=== PATIENT | female | born 1965 | race Caucasian/White ===

== ENCOUNTER 2017-01-28 08:00 | Emergency (ER) | payer SELFPAY ==
--- NOTE | ~2017-01-28 | CR72 ---
[facility]. [facility] A Service of [facility] & [facility] RADIOLOGY TEXT RESULTS PATIENT: NASREEN MARRERO LOCATION: SED : 61 UNIT #: [id number] AGE: [address]: Kenzie Alexis MD SEX: F ORDER DR: [id number] [address] [address] [id number] E MR#: [id number] Acc #: [id number] NAME: NASREEN MARRERO : 1965 SEX: F STUDY DATE/TIME: 01/28/2017 8:57 UNIT: SED ROOM: STUDY DESCRIPTION: CR Chest Single View Portable Attending Physician: Kenzie Alexis M.D. Ordering Physician: Kenzie Alexis M.D. Primary Care Physician: Primary Care Physician No MEDICAL IMAGING REPORT This report is preliminary unless electronic signature is present. EXAM Portable chest INDICATIONS Dizziness today, near-syncope, no comparisons. FINDINGS There is low-volume inspiration with bibasilar atelectasis. Heart size normal. Visualized osseous structures are unremarkable. IMPRESSION Low-volume inspiration with bibasilar atelectasis. Dictated by... Pedro Lockett M.D. THIS IS AN ELECTRONICALLY VERIFIED REPORT Pedro Lockett M.D. at 01/29/2017 7:32 AM OUMAR/joyce TD: 01/28/2017 10:46 JOB #: [id number] MEDICAL IMAGING REPORT Page 1 of 1
--- NOTE | ~2017-01-28 | EKG ---
PATIENT: NASREEN MARRERO UNIT #: [id number] Ventricular Rate: 62 BPM Atrial Rate: 62 BPM P-R Interval: 184 ms QRS Duration: 88 ms Q-T Interval: 446 ms QTC Calculation(Bezet): 452 ms P [place]: 52 degrees Calculated R [place]: 24 degrees Calculated T [place]: 65 degrees Diagnosis Line: Normal sinus rhythm Diagnosis Line: Cannot rule out Anterior infarct , age Diagnosis Line: undetermined Diagnosis Line: Abnormal ECG Diagnosis Line: No previous ECGs available Diagnosis Line: Confirmed by FOZIA MELVIN MD ([id number]) on Diagnosis Line: 01/29/2017 8:37:09 AM INTERPRETING MD: OLEGARIO CASTAÑEDA
[~2017-01-28 08:00] MED LIST: ALPRAZOLAM PO; CIPRO PO; CLEOCIN HCL300 M1 PO; FLAGYL PO; MOBIC PO; PERCOCET PO; PHENERGAN25 M1 PO; PYRIDIUM PO; VICODIN 5/500 T1 TAB PO
[2017-01-28] MEDS ORDERED: NO MEDICATIONS (08:05)
[2017-01-28 09:16] LABS: BASOPHIL% 0.5 % (0-2.5); EOSINOPHIL# 0.1 X10e3 (0-0.7); EOSINOPHIL% 1.6 % (0.0-7.0); HEMATOCRIT 39.7 % (35.0-45.0); HEMOGLOBIN 13.5 gm/dL (12.0-16.0); LYMPHOCYTE# 0.9 X10e3 (1.0-3.5); LYMPHOCYTE% 22.3 % (17.0-45.0); MEAN CORPUSCULAR HEMOGLOBIN 30.8 PG (28-34); MEAN CORPUSCULAR HGB CONC 33.8 g/dL (30-36); MEAN PLATELET VOLUME 7.9 FL (6.5-11.5); MONOCYTE# 0.3 X10e3 (0-1.0); MONOCYTE% 6.5 % (3.0-12.0); NEUTROPHIL# 2.9 X10e3 (1.5-7.1); NEUTROPHIL% 69.1 % (40-75); PLATELET COUNT 208 X10e3 (140-420); RED BLOOD COUNT 4.37 X10e (3.90-5.30); RED CELL DISTRIBUTION WIDTH 13.1 % (11.0-15.5); WHITE BLOOD COUNT 4.2 X10e3 (4.0-10.5)
[2017-01-28 09:18] LABS: DIFF IND NO
[2017-01-28 09:20] LABS: POC - CKMB 2.5 ng/mL (0.0-7.9)
[2017-01-28 09:21] LABS: POC - TROPONIN <0.05 ng/mL (<=0.05)
[2017-01-28 09:35] LABS: ALBUMIN SERUM 3.9 g/dL (3.5-5.0); BILIRUBIN, DIRECT 0.1 mg/dL (0.0-0.2); BILIRUBIN,INDIRECT 0.6 mg/dL (0.0-0.9); BILIRUBIN,TOTAL 0.7 mg/dL (0.2-2.0); CREATININE SERUM 0.7 mg/dL (0.6-1.4); GLOM FILT RATE Estimated 98.9 mL/min (>60); MAGNESIUM 2.1 mg/dL (1.6-3.0); POTASSIUM 3.4 mmol/L (3.5-5.1); PROTEIN TOTAL SERUM 7.1 g/dL (6.0-8.3)
[2017-01-28 10:48] LABS: POC - CKMB 2.6 ng/mL (0.0-7.9); POC - TROPONIN <0.05 ng/mL (<=0.05)
[2017-01-28 10:49] LABS: URINE APPEARANCE HAZY; URINE BILIRUBIN NEG (NEG); URINE BLOOD 1+ (NEG); URINE COLOR YELLOW; URINE GLUCOSE NEG (NORM); URINE KETONE NEG (NEG); URINE LEUKOCYTE ESTERASE NEG (NEG); URINE NITRATE POS (NEG); URINE PROTEIN NEG (NEG); URINE SPECIFIC GRAVITY >=1.030 (1.003-1.035); URINE UROBILINOGEN 0.2 MG/DL (NORM)
[2017-01-28 10:56] LABS: MICRO INDICATED? YES; URINE SOURCE CLEAN CATCH
[2017-01-28 10:57] LABS: CULTURE INDICATED? YES; URINE BACTERIA 4+ (NEG); URINE SQUAMOUS EPITHELIAL CELL MANY /[HPF]
[2017-01-28 11:07] LABS: AMPHETAMINE POS (NEG); BARBITURATES NEG (NEG); BENZODIAZEPINES POS (NEG); COCAINE NEG (NEG); MARIJUANA NEG (NEG); OPIATES NEG (NEG); TRICYCLIC ANTIDEPRESSANTS NEG (NEG); U METHADONE NEG (NEG)
== END 2017-01-28 11:46 | disposition home or self-care (01) ==
LOC: SED 08:00
PROVIDERS: Emergency Medicine
DX: R53.1 Weakness (principal); F19.10 Other psychoactive substance abuse, uncomplicated; I10 Essential (primary) hypertension; F17.210 Nicotine dependence, cigarettes, uncomplicated
CPT/HCPCS: 36415; 71010; 80048; 80076; 80307; 81003; 82553; 83735; 84484; 85025; 87086; 87088; 87186; 93005; 99284